=== PATIENT | female | born 1965 | race Caucasian/White ===

== ENCOUNTER 2017-07-25 19:32 | Emergency (ER) | payer SELFPAY ==
[~2017-07-25 19:32] MED LIST: Donnatal Elixir 16.2 MG/5 ML UDCUP ONE; Sodium Chloride 0.9% 100 ML BAG ONE
[2017-07-25] MEDS ORDERED: Morphine Sulfate 2 MG/ML SYRINGE ONE (20:26)
[2017-07-25] MEDS ORDERED: Metoclopramide HCl 10 MG/2 ML VIAL ONE (20:27)
[2017-07-25] MEDS ORDERED: Ondansetron HCl/PF 4 MG/2 ML Vial ONE (20:27)
[2017-07-25] MEDS ORDERED: Ketorolac Tromethamine 30 MG/ML VIAL ONE (20:27)
[2017-07-25 21:49] LABS: #Basophils 0.1 thou/uL (0.0-0.2); #Eosinphils 0.1 thou/uL (0.0-0.7); #Lymphocytes 1.5 thou/uL (1.20-3.40); #Monocytes 0.6 thou/uL (0.11-0.59); #Neutrophils 11.5 thou/uL (1.40-6.50); %Basophils 0.4 % (0.0-1.0); %Eosinophils 0.4 % (0.0-10.0); %Lymphocytes 10.7 % (21.0-51.0); %Monocytes 4.2 % (0.0-10.0); %Neutrophils 84.3 % (42.0-75.0); Hemoglobin 12.5 g/dL (12.0-16.0); Mean Corpuscular HGB CONC 31.4 g/dL (32.0-36.0); Mean Corpuscular Hemoglobin 26.7 pg (27.0-31.0); Mean Platelet Volume 7.1 fL (7.4-10.4); Platelet Count 316 thou/uL (130-400); RBC Distribution Width 15.5 % (11.5-14.5); Red Blood Cell (RBC) Count 4.67 mill/uL (4.20-5.40); White Blood Cell (WBC) Count 13.7 thou/uL (4.8-10.8)
--- NOTE | 2017-07-25 21:52 | RAD ---
SINGLE VIEW OF THE CHEST: History: Epigastric abdominal pain. FINDINGS: Single view of the chest shows a normal sized cardiomediastinal silhouette. There is no evidence of consolidation, mass, or pleural effusion. The bones are unremarkable. IMPRESSION: No evidence of acute cardiopulmonary disease. POS: [facility]
[2017-07-25 22:01] LABS: BHCG - Serum Negative (NEGATIVE); Pregs Control Background? CLEAR/WHITE (CLR/WHITE); Pregs Control Bar Appear? YES (CONTROL BAR)
[2017-07-25] MEDS ORDERED: Pantoprazole 40 MG VIAL ONE (22:02)
[2017-07-25 22:07] LABS: Troponin I Less than 0.010 ng/mL (< 0.028)
[2017-07-25 22:12] LABS: ALT (SGPT) 25 U/L (8-55); AST (SGOT) 24 U/L (5-34); Albumin 4.1 g/dL (3.5-5.0); Alkaline Phosphatase 79 U/L (40-150); Anion Gap 17 mmol/L (10-20); BUN (Urea Nitrogen) 7 mg/dL (7.0-18.7); Bilirubin, Total 0.5 mg/dL (0.2-1.2); CK (CPK) 95 U/L (29-168); Calc. Creatinine Clearance 0 mL/min (70-130); Calcium 8.6 mg/dL (7.8-10.44); Carbon Dioxide 22 mmol/L (22-29); Chloride 103 mmol/L (98-107); Estimated GFR-MDRD Greater than 90; Globulin 2.9 g/dL (2.4-3.5); Glucose 155 mg/dL (70-105); Lipase 53 U/L (8-78); Potassium 3.7 mmol/L (3.5-5.1); Sodium 138 mmol/L (136-145)
[2017-07-25 22:16] LABS: Bacteria/HPF 2+ HPF (None Seen); Bilirubin Negative (Negative); Blood, Urine Negative (Negative); Clarity Hazy (Clear); Glucose, Urine (Dipstick) Negative (Negative); Leukocyte Negative (Negative); Nitrite Negative (Negative); Protein, Urine (Dipstick) Trace mg/dL (Neg-Trace); RBC/HPF 0-3 HPF (0-3); Specific Gravity, Urine 1.025 (1.005-1.030); Urobilinogen 0.2 mg/dL (0.2-1.0); pH, Urine 6.5 (5.0-9.0)
[2017-07-25] MEDS ORDERED: Mag-Al Plus 1200 MG/1200 MG/120 MG/30 ML UDCUP ONE (23:20)
[2017-07-25] MEDS ORDERED: Lidocaine Viscous Sol 2% 15 ml UD Cup ONE (23:20)
[2017-07-25] MEDS ORDERED: Donnatal Elixir 16.2 MG/5 ML UDCUP ONE (23:20)
[2017-07-25 23:25] LABS: Acetaminophen Less than 6.0 mcg/mL (10.0-30.0); Alcohol Less than 10 mg/dL (Less than 10); Salicylate Less than 8.0 mg/dL (15.0-30.0)
[2017-07-26 00:31] LABS: Amphetamine Not Detected (NotDetected); Barbiturates Screen Not Detected (NotDetected); Benzodiazepine Screen Not Detected (NotDetected); Cocaine Metabolite Screen Not Detected (NotDetected); Medtox Control Line Valid? VALID (VALID); Methadone Not Detected (NotDetected); Methamphetamine Not Detected (NotDetected); Opiate Screen Detected (NotDetected); Oxycodone Screen Not Detected (NotDetected); Phencyclidine (PCP) Not Detected (NotDetected); THC/Cannabinoid Screen Not Detected (NotDetected); Tricyclic Screen Not Detected (NotDetected)
[2017-07-26] MEDS ORDERED: Ciprofloxacin 500 MG TAB ONE (00:41)
== END 2017-07-26 01:13 | disposition short-term general hospital (02) ==
LOC: MADERS 19:32
DX: N39.0 Urinary tract infection, site not specified (principal); E03.9 Hypothyroidism, unspecified; F41.9 Anxiety disorder, unspecified; F32.9 Major depressive disorder, single episode, unspecified
CPT/HCPCS: 36415; 71010; 80053; 80306; 80307; 81001; 82150; 82553; 83690; 84484; 84703; 85025; 87086; 93005; 96365; 96375; 96376; C9113; J1885; J2270; J2405; J2765; J7050

== ENCOUNTER 2018-03-01 08:59 | Emergency (ER) | payer SELFPAY ==
[2018-03-01] MEDS ORDERED: Ondansetron ODT 4 MG TAB ONE (09:12)
[2018-03-01] MEDS ORDERED: Promethazine HCl 25 MG/ML VIAL ONE ×2 (09:21→09:35)
[2018-03-01] MEDS ORDERED: Sodium Chloride 0.9% 1,000 ML BAG ONE (09:28)
[2018-03-01] MEDS ORDERED: Lactated Ringer's 1,000 ML BAG ONE (09:28)
--- NOTE | 2018-03-01 10:04 | RAD ---
ONE VIEW CHEST ABDOMEN TWO VIEWS: History: Nausea. Vomiting. Comparison: None. FINDINGS: Normal cardiac silhouette. The pulmonary vessels and hilum are normal. Costophrenic angles are clear. No consolidation or mass. No pneumothorax or osseous abnormalities. Abdomen two views. Nonspecific bowel gas pattern. Suture material is noted in the left hemiabdomen. S urgical clips identified in the right upper quadrant. No pneumoperitoneum. No suspicious densities in the abdomen or pelvis. IMPRESSION: 1. Nonspecific bowel gas pattern. 2. No acute cardiopulmonary process. POS: [facility]
[2018-03-01 10:12] LABS: ALT (SGPT) 29 U/L (8-55); AST (SGOT) 47 U/L (5-34); Albumin 4.5 g/dL (3.5-5.0); Alkaline Phosphatase 71 U/L (40-150); Anion Gap 18 mmol/L (10-20); BUN (Urea Nitrogen) 7 mg/dL (7.0-18.7); Calc. Creatinine Clearance 0 mL/min (70-130); Calcium 9.1 mg/dL (7.8-10.44); Carbon Dioxide 25 mmol/L (22-29); Chloride 101 mmol/L (98-107); Estimated GFR-MDRD 89; Globulin 3.4 g/dL (2.4-3.5); Glucose 87 mg/dL (70-105); Lipase 52 U/L (8-78); Potassium 4.2 mmol/L (3.5-5.1); Protein, Total 7.9 g/dL (6.0-8.3); Sodium 140 mmol/L (136-145)
[2018-03-01 10:13] LABS: #Basophils 0.1 thou/uL (0.0-0.2); #Lymphocytes 2.2 thou/uL (1.20-3.40); #Monocytes 0.6 thou/uL (0.11-0.59); #Neutrophils 4.5 thou/uL (1.40-6.50); %Basophils 1.3 % (0.0-1.0); %Eosinophils 0.7 % (0.0-10.0); %Lymphocytes 29.1 % (21.0-51.0); %Monocytes 8.5 % (0.0-10.0); %Neutrophils 60.4 % (42.0-75.0); Hemoglobin 11.3 g/dL (12.0-16.0); Mean Corpuscular HGB CONC 30.6 g/dL (32.0-36.0); Mean Corpuscular Hemoglobin 22.9 pg (27.0-31.0); Mean Corpuscular Volume 74.7 fl (81.0-99.0); Platelet Count 533 thou/uL (130-400); RBC Distribution Width 17.7 % (11.5-14.5); Red Blood Cell (RBC) Count 4.92 mill/uL (4.20-5.40); White Blood Cell (WBC) Count 7.5 thou/uL (4.8-10.8)
[2018-03-01 10:26] LABS: PLT Morphology Comment Appears Increased
[2018-03-01 10:27] LABS: Anisocytosis SLIGHT = 6-15 cells (100X) (0-5/hpf)
[2018-03-01] MEDS ORDERED: Pantoprazole 40 MG VIAL ONE (11:09)
[2018-03-01] MEDS ORDERED: Mag-Al Plus 1200 MG/1200 MG/120 MG/30 ML UDCUP ONE (11:09)
[2018-03-01 12:31] LABS: Lactic Acid 2.1 mmol/L (0.5-2.2)
[2018-03-01] MEDS ORDERED: Loperamide HCl 2 MG CAP ONE (13:14)
== END 2018-03-01 13:23 | disposition home or self-care (01) ==
LOC: MADERS 08:59
DX: A08.4 Viral intestinal infection, unspecified (principal); E03.9 Hypothyroidism, unspecified; F41.9 Anxiety disorder, unspecified; F32.9 Major depressive disorder, single episode, unspecified; Z79.899 Other long term (current) drug therapy
CPT/HCPCS: 74022; 80053; 83605; 83690; 84443; 85025; 96361; 96365; 96375; C9113; J2550; J7050; J7120; Q0162

== ENCOUNTER 2018-08-02 08:30 | Emergency (ER) | payer SELFPAY ==
[~2018-08-02 08:30] MED LIST changes: +Adacel (T-DAP) 0.5 ML VIAL ONE; -Donnatal Elixir 16.2 MG/5 ML UDCUP ONE; -Sodium Chloride 0.9% 100 ML BAG ONE
== END 2018-08-02 09:30 | disposition home or self-care (01) ==
LOC: MADERS 08:37
DX: L03.116 Cellulitis of left lower limb (principal)
CPT/HCPCS: 90471; 90715

== ENCOUNTER 2018-12-19 22:27 | Emergency (ER) | payer SELFPAY ==
[2018-12-19] MEDS ORDERED: Aspirin Chewable 81 MG TAB ONE (22:54)
[2018-12-19 23:08] LABS: #Basophils 0.1 thou/uL (0.0-0.2); #Lymphocytes 2.2 thou/uL (1.20-3.40); #Monocytes 0.9 thou/uL (0.11-0.59); #Neutrophils 9.1 thou/uL (1.40-6.50); %Basophils 0.8 % (0.0-1.0); %Eosinophils 0.3 % (0.0-10.0); %Lymphocytes 17.6 % (21.0-51.0); %Monocytes 6.9 % (0.0-10.0); %Neutrophils 74.5 % (42.0-75.0); Hemoglobin 10.7 g/dL (12.0-16.0); Hypochromia MODERATE=16-30 cells (100X) (0-5/hpf); MDiff Complete? YES; Mean Corpuscular HGB CONC 30.3 g/dL (32.0-36.0); Mean Corpuscular Volume 75.9 fL (78.0-98.0); Mean Platelet Volume 4.9 fL (7.4-10.4); Microcytosis SLIGHT = 6-15 cells (100X) (0-5/hpf); Platelet Count 432 thou/uL (130-400); Platelet Morphology Comment Appears Adequate; RBC Distribution Width 18.4 % (11.5-14.5); RBC Morphology Abnormal; Red Blood Cell (RBC) Count 4.66 mill/uL (4.20-5.40); Target Cells MODERATE= 6-15 cells (100X) (0-1/hpf); White Blood Cell (WBC) Count 12.2 thou/uL (4.8-10.8)
[2018-12-19 23:12] LABS: ALT (SGPT) 116 U/L (8-55); AST (SGOT) 362 U/L (5-34); Albumin 4.3 g/dL (3.5-5.0); Alcohol 247 mg/dL (Less than 10); Alkaline Phosphatase 103 U/L (40-150); Anion Gap 22 mmol/L (10-20); BUN (Urea Nitrogen) 6 mg/dL (9.8-20.1); Bilirubin, Total 0.8 mg/dL (0.2-1.2); Calc. Creatinine Clearance 0 mL/min (70-130); Carbon Dioxide 20 mmol/L (22-29); Chloride 101 mmol/L (98-107); Estimated GFR-MDRD 88; Globulin 3.4 g/dL (2.4-3.5); Glucose 78 mg/dL (70-105); Protein, Total 7.7 g/dL (6.0-8.3); Sodium 139 mmol/L (136-145)
--- NOTE | 2018-12-19 23:51 | RAD ---
FRONTAL VIEW CHEST: INDICATIONS: Chest pain. COMPARISON: 07/25/2017 FINDINGS: There is no consolidation, effusion, or pneumothorax. The cardiac silhouette is normal in size. IMPRESSION: No focal consolidation. POS: [facility]
== END 2018-12-20 00:03 | disposition home or self-care (01) ==
LOC: MADERS 22:27
DX: R07.9 Chest pain, unspecified (principal); F10.229 Alcohol dependence with intoxication, unspecified; F41.9 Anxiety disorder, unspecified
CPT/HCPCS: 71045; 80053; 80307; 84443; 84484; 85025; 93005

== ENCOUNTER 2019-08-28 10:36 | Emergency (ER) | payer SELFPAY ==
[~2019-08-28 10:36] MED LIST changes: -Adacel (T-DAP) 0.5 ML VIAL ONE; +Dextrose 5 % And 0.9 % NaCl 1000 ml Bag ONE; +Sodium Chloride 0.9% 1,000 ML BAG ONE
[2019-08-28 11:25] LABS: Bilirubin Negative (Negative); Blood, Urine Trace (Negative); Glucose, Urine (Dipstick) Negative (Negative); Leukocyte Large (Negative); Nitrite Positive (Negative); Protein, Urine (Dipstick) Trace mg/dL (Neg-Trace); Urobilinogen 0.2 mg/dL (Less than 2)
[2019-08-28 11:28] LABS: Pregnancy Test - Urine (BHCG) Negative (Negative); Pregu Control Background? CLEAR/WHITE (CLR/WHITE); Pregu Control Bar Appear? YES (CONTROL BAR)
[2019-08-28 11:31] LABS: Clarity Slightly Cloudy (Clear)
[2019-08-28 11:34] LABS: ALT (SGPT) 19 U/L (8-55); AST (SGOT) 32 U/L (5-34); Acetaminophen Less than 6.0 mcg/mL (10.0-30.0); Albumin 4.3 g/dL (3.5-5.0); Alcohol 308 mg/dL (Less than 10); Alkaline Phosphatase 109 U/L (40-110); Anion Gap 23 mmol/L (10-20); BUN (Urea Nitrogen) 7 mg/dL (9.8-20.1); Bilirubin, Total 0.7 mg/dL (0.2-1.2); Calc. Creatinine Clearance 0 mL/min (70-130); Carbon Dioxide 20 mmol/L (22-29); Chloride 98 mmol/L (98-107); Estimated GFR-MDRD 85; Globulin 3.9 g/dL (2.4-3.5); Glucose 103 mg/dL (70-105); Potassium 3.7 mmol/L (3.5-5.1); Protein, Total 8.2 g/dL (6.0-8.3); Salicylate Less than 8.0 mg/dL (15.0-30.0); Sodium 137 mmol/L (136-145)
[2019-08-28 11:34] LABS: Bacteria/HPF 3+ HPF (None Seen); WBC/HPF 21-50 HPF (0-3)
[2019-08-28 11:35] LABS: Amphetamine Not Detected (NotDetected); Barbiturates Screen Not Detected (NotDetected); Benzodiazepine Screen Not Detected (NotDetected); Cocaine Metabolite Screen Not Detected (NotDetected); Medtox Control Line Valid? VALID (VALID); Methadone Not Detected (NotDetected); Methamphetamine Not Detected (NotDetected); Opiate Screen Not Detected (NotDetected); Oxycodone Screen Not Detected (NotDetected); Phencyclidine (PCP) Not Detected (NotDetected); THC/Cannabinoid Screen Not Detected (NotDetected); Tricyclic Screen Not Detected (NotDetected)
[2019-08-28 11:40] LABS: #Basophils 0.1 thou/uL (0.0-0.2); #Lymphocytes 2.6 thou/uL (1.20-3.40); #Monocytes 0.6 thou/uL (0.11-0.59); #Neutrophils 4.6 thou/uL (1.40-6.50); %Basophils 1.8 % (0.0-1.0); %Eosinophils 0.5 % (0.0-10.0); %Lymphocytes 32.7 % (21.0-51.0); %Monocytes 7.2 % (0.0-10.0); %Neutrophils 57.8 % (42.0-75.0); Anisocytosis SLIGHT = 6-15 cells (100X) (0-5/hpf); Hemoglobin 12.6 g/dL (12.0-16.0); Hypochromia SLIGHT = 6-15 cells (100X) (0-5/hpf); MDiff Complete? YES; Mean Corpuscular HGB CONC 31.3 g/dL (32.0-36.0); Mean Corpuscular Hemoglobin 25.2 pg (27.0-31.0); Mean Corpuscular Volume 80.5 fL (78.0-98.0); Mean Platelet Volume 4.4 fL (7.4-10.4); Platelet Count 373 thou/uL (130-400); Platelet Morphology Comment Appears Adequate; RBC Distribution Width 20.4 % (11.5-14.5); Red Blood Cell (RBC) Count 5.01 mill/uL (4.20-5.40)
[2019-08-28] MEDS ORDERED: cefTRIAXone\\ROCEPHIN 1 GM VIAL ONE (12:03)
[2019-08-28] MEDS ORDERED: Sodium Chloride 0.9% 100 ML ONE (12:03)
[2019-08-28] MEDS ORDERED: Ondansetron PF 4 MG/2 ML Vial ONE (14:48)
[2019-08-28] MEDS ORDERED: Metoclopramide HCl 10 MG/2 ML VIAL ONE (16:34)
== END 2019-08-28 19:20 | disposition home or self-care (01) ==
LOC: MADERS 10:36
DX: F10.129 Alcohol abuse with intoxication, unspecified (principal); F32.9 Major depressive disorder, single episode, unspecified; N39.0 Urinary tract infection, site not specified; F41.9 Anxiety disorder, unspecified
CPT/HCPCS: 36415; 80053; 80306; 80307; 81003; 81015; 81025; 84443; 85025; 96361; 96365; 96375; J0696; J2405; J2765; J3490; J7042; J7050

== ENCOUNTER 2020-03-24 09:38 | Emergency (ER) | payer OTHER, SELFPAY ==
[2020-03-24] MEDS ORDERED: Ondansetron ODT 4 MG TAB ONE (09:54)
[2020-03-24] MEDS ORDERED: Sodium Chloride 0.9% 1,000 ML ONE (10:12)
[2020-03-24] MEDS ORDERED: Pantoprazole 40 MG VIAL ONE (10:15)
[2020-03-24 10:40] LABS: ALT (SGPT) 105 U/L (8-55); AST (SGOT) 438 U/L (5-34); Albumin 2.9 g/dL (3.5-5.0); Alkaline Phosphatase 113 U/L (40-110); Anion Gap 19 mmol/L (10-20); BUN (Urea Nitrogen) 21 mg/dL (9.8-20.1); Bilirubin, Total 2.6 mg/dL (0.2-1.2); Calc. Creatinine Clearance 0 mL/min (70-130); Calcium 7.9 mg/dL (7.8-10.44); Carbon Dioxide 19 mmol/L (22-29); Chloride 81 mmol/L (98-107); Estimated GFR-MDRD 47; Globulin 3.3 g/dL (2.4-3.5); Protein, Total 6.2 g/dL (6.0-8.3)
[2020-03-24 10:43] LABS: Anisocytosis SLIGHT = 6-15 cells (100X) (0-5/hpf); Band 16 % (5-11); Hemoglobin 11.9 g/dL (12.0-16.0); Hypochromia SLIGHT = 6-15 cells (100X) (0-5/hpf); Lymphocytes 6 % (21-51); MDiff Complete? YES; Mean Corpuscular HGB CONC 32.4 g/dL (32.0-36.0); Mean Corpuscular Volume 89.5 fL (78.0-98.0); Mean Platelet Volume 11.8 fL (7.4-10.4); Monocytes 15 % (0-10); Neutrophil 63 % (42-75); Platelet Count 42 thou/uL (130-400); Platelet Morphology Comment Appears Decreased; RBC Distribution Width 14.4 % (11.5-14.5); White Blood Cell (WBC) Count 5.9 thou/uL (4.8-10.8)
[2020-03-24 10:54] LABS: Glucose 51 mg/dL (70-105); Potassium 2.6 mmol/L (3.5-5.1); Sodium 116 mmol/L (136-145)
[2020-03-24] MEDS ORDERED: NS 0.9% w/ 40 MEQ KCL 1,000 ML IV ONE (11:10)
[2020-03-24] MEDS ORDERED: Dextrose 50% Abboject 50 ML SYRINGE ONE (11:13)
[2020-03-24] MEDS ORDERED: Thiamine HCl 200 MG/2 ML VIAL ONE (11:13)
--- NOTE | 2020-03-24 11:16 | RAD ---
ABDOMEN 1 VIEW: Date: 03/24/2020 HISTORY: Pain. COMPARISON: Abdomen radiograph dated 03/01/2018. FINDINGS: There are no dilated air-filled loops of large or small bowel. On the upright view, there is no free air under the hemidiaphragms. There is interposition of bowel extending to the left hemidiaphragm and spleen. Left upper quadrant and right upper quadrant surgical clips. Right lower quadrant suture. IMPRESSION: No evidence for bowel obstruction. POS: [facility]
[2020-03-24 12:07] LABS: Bilirubin Negative (Negative); Blood, Urine Moderate (Negative); Glucose, Urine (Dipstick) Negative (Negative); Leukocyte Small (Negative); Nitrite Negative (Negative); Protein, Urine (Dipstick) 30 mg/dL (Neg-Trace); Urobilinogen 0.2 mg/dL (Less than 2)
[2020-03-24 12:09] LABS: Clarity Hazy (Clear)
[2020-03-24 12:15] LABS: Bacteria/HPF 1+ HPF (None Seen)
[2020-03-24] MEDS ORDERED: Acetaminophen 325 MG TAB PO PRN (13:44)
[2020-03-24] MEDS ORDERED: Ondansetron ODT 4 MG TAB SL PRN (16:00)
[2020-03-24] MEDS ORDERED: Ondansetron PF 4 MG/2 ML Vial IVP PRN (16:00)
[2020-03-25 14:14] LABS: HBCM Index 0.05 S/CO (0-0.79); HBSAg Index 0.17 S/CO (0-0.99); Hep A IgM AB Non-Reactive (NonReactive); Hep A IgM S/CO 0.14 S/CO (0-0.79); Hep B Surf Ag Non-Reactive S/CO (NonReactive); Hep C IgG Ab Non-Reactive (NonReactive); Hep C Index 0.07 S/CO (0-0.79); Hepatitis B Core IgM Abs Non-Reactive (NonReactive)
[2020-03-25 18:25] LABS: SARS-CoV-2 MS2 Positive; SARS-CoV-2 N Gene Negative; SARS-CoV-2 S Gene Negative; SARS-CoV-2 orf1ab Negative
== END 2020-03-24 12:37 | disposition short-term general hospital (02) ==
LOC: MADERS 09:38
DX: B17.9 Acute viral hepatitis, unspecified (principal); F10.10 Alcohol abuse, uncomplicated; E11.649 Type 2 diabetes mellitus with hypoglycemia without coma; E87.6 Hypokalemia; E78.1 Pure hyperglyceridemia; D69.6 Thrombocytopenia, unspecified; E87.1 Hypo-osmolality and hyponatremia; N17.9 Acute kidney failure, unspecified; Z03.818 Encounter for observation for suspected exposure to other biological agents ruled out
CPT/HCPCS: 36415; 36416; 74018; 80053; 80074; 81003; 81015; 83605; 83690; 83935; 84300; 85025; 87635; 93005; 96361; 96365; 96375; C9113; J3411; J3480; J7050; Q0162; U0003

== ENCOUNTER 2025-01-13 09:11 | Emergency (ER) | payer BC, SELFPAY | END 2025-01-13 09:39 | disposition home or self-care (01) | LOC: MADERS 09:11 | DX: K04.7 Periapical abscess without sinus (principal); K02.9 Dental caries, unspecified; I10 Essential (primary) hypertension | CPT/HCPCS: 99283 ==

== ENCOUNTER 2025-07-05 18:45 | Emergency (ER) | payer BC, SELFPAY | END 2025-07-05 20:26 | disposition home or self-care (01) | LOC: MADERS 18:45 | DX: S82.831A Other fracture of upper and lower end of right fibula, initial encounter for closed fracture (principal); I10 Essential (primary) hypertension; E78.5 Hyperlipidemia, unspecified; E03.9 Hypothyroidism, unspecified; Z86.73 Personal history of transient ischemic attack (TIA), and cerebral infarction without residual deficits; W18.42XA Slipping, tripping and stumbling without falling due to stepping into hole or opening, initial encounter | CPT/HCPCS: 99283 ==